=== PATIENT | female | born 1980 | race Caucasian/White ===

== ENCOUNTER 2024-09-13 11:42 | Emergency (ER) | payer MEDICAID, OTHER ==
[~2024-09-13] VITALS: Ht 165.1 cm; Wt 52.2 kg
[2024-09-13 11:52] VITALS: BP 99/62
[2024-09-13 13:14] LABS: PLATELET COUNT (AUTO) 249 K/uL (179-408); RED BLOOD CELL COUNT(AUTO) 4.42 MIL/uL (3.63-4.92); RED CELL DISTRIBUTION WIDTH 14.5 % (12.3-17.7); WHITE BLOOD COUNT (AUTO) 3.7 K/uL (3.8-11.8)
[2024-09-13 13:29] LABS: CREATININE 0.5 mg/dL (0.6-1.3); SODIUM SERUM 138 mmol/L (136-145); UREA NITROGEN, BLOOD 8 mg/dL (7-18)
[2024-09-13 13:34] LABS: CREATINE KINASE, TOTAL 51 U/L (26-192)
[2024-09-13 13:35] LABS: ASPARTATE AMINOTRANSFERASE 12 U/L (15-37); TOTAL PROTEIN, SERUM 7.0 g/dL (6.4-8.2)
[2024-09-13 13:36] LABS: PREGNANCY TEST SERUM QUAN < 1 miul/L (0-6)
[2024-09-13] MEDS ORDERED: SWABABLE VALVE TRANSFER SET EA MC ONE (14:05)
[2024-09-13] MEDS ORDERED: IOHEXOL 350 100 ML INFUS..BTL ONE (14:05)
[2024-09-13] MEDS ORDERED: IV NORMAL SALINE 0 ML IV ONE (14:06)
[2024-09-13 14:35] VITALS: BP 103/60; O2SAT 98
== END 2024-09-13 14:36 | disposition home or self-care (01) ==
LOC: ER 11:42
DX: R55 Syncope and collapse (principal); S06.0X0A Concussion without loss of consciousness, initial encounter; M54.2 Cervicalgia; R11.2 Nausea with vomiting, unspecified; R50.9 Fever, unspecified; R10.2 Pelvic and perineal pain; X58.XXXA Exposure to other specified factors, initial encounter; Y93.89 Activity, other specified; Y92.89 Other specified places as the place of occurrence of the external cause; Y99.8 Other external cause status
CPT/HCPCS: 99284; 70450; 80076; 80048; 82550; 85025; 85379; 85730; 84484; 84702; 36415; 72125; 93005; Q9967; A4606; A4663

== ENCOUNTER 2024-09-14 10:34 | Emergency (ER) | payer MEDICAID ==
[~2024-09-14] VITALS: Ht 165.1 cm; Wt 52.2 kg
[2024-09-14 10:36] VITALS: BP 136/80
[2024-09-14] MEDS ORDERED: SWABABLE VALVE TRANSFER SET EA MC ONE ×2 (11:18→11:19)
[2024-09-14] MEDS ORDERED: IV NORMAL SALINE 250 ML IV ONE (11:18)
[2024-09-14] MEDS ORDERED: IOHEXOL 350 100 ML INFUS..BTL ONE (11:18)
[2024-09-14 13:19] VITALS: BP 134/76; O2SAT 99
== END 2024-09-14 13:20 | disposition home or self-care (01) ==
LOC: ER 10:34
DX: R55 Syncope and collapse (principal); F07.81 Postconcussional syndrome; R06.02 Shortness of breath; R07.9 Chest pain, unspecified; R11.2 Nausea with vomiting, unspecified; R50.9 Fever, unspecified; R79.89 Other specified abnormal findings of blood chemistry
CPT/HCPCS: 99285; 71275; 84484; 36415; 93005; Q9967; A4606; A4663

== ENCOUNTER 2025-01-17 22:40 | Emergency (ER) | payer MEDICAID ==
[2025-01-18] MEDS ORDERED: PRED50TA PO (09:13)
== END 2025-01-17 23:30 | disposition left against medical advice (07) ==
LOC: ER 22:40
DX: Z53.21 Procedure and treatment not carried out due to patient leaving prior to being seen by health care provider (principal)

== ENCOUNTER 2025-01-18 08:21 | Emergency (ER) | payer MEDICAID ==
[~2025-01-18] VITALS: Ht 170.2 cm; Wt 51.3 kg
[2025-01-18 08:42] VITALS: BP 111/64
[2025-01-18] MEDS ORDERED: PRED50TA PO (09:13)
[2025-01-18 09:24] VITALS: BP 111/64; O2SAT 99
== END 2025-01-18 09:25 | disposition home or self-care (01) ==
LOC: ER 08:21
DX: R51.9 Headache, unspecified (principal); Z57.8 Occupational exposure to other risk factors
CPT/HCPCS: A4606; A4663